=== PATIENT | male | born 1985 | race Two or more races ===

== ENCOUNTER 2021-01-26 09:30 | Emergency (ER) | payer OTHER ==
[~2021-01-26] VITALS: Ht 121.9 cm; Wt 40.8 kg
[2021-01-26] MEDS ORDERED: ADENOSINE 6 MG/2 ML INJ IV ONE (09:45)
[2021-01-26] MEDS ORDERED: dilTIAZem 25 MG/5 ML VIAL IV ONE ×2 (10:00)
[2021-01-26] MEDS ORDERED: SODIUM CHLORIDE 0.9% 1,000 ML IV ONE (10:00)
[2021-01-26] MEDS ORDERED: dilTIAZem 125mg/125ml BAG KIT 125 ML IV ONE ×2 (10:00)
[2021-01-26] MEDS ORDERED: ACETAMINOPHEN 650 MG RECT SUPP PR ONE (10:15)
[2021-01-26 10:48] LABS: Basophils # (auto) 0 10 ^3/uL (0-0.2); Basophils % (auto) 0.1 % (0.0-2.0); Eosinophils # (auto) 0 10 ^3/uL (0-0.8); Hematocrit 42.1 % (41.0-53.0); Hemoglobin 13.7 g/dL (13.5-17.5); Lymphocytes # (auto) 0.8 10 ^3/uL (0.4-5.4); Lymphocytes % (auto) 3.8 % (10.0-50.0); Mean Corpuscular Hemoglobin 28.3 pg (28.0-32.0); Mean Corpuscular Hgb Conc. 32.6 g/dL (32.0-36.0); Mean Corpuscular Volume 86.8 fL (80.0-100.0); Monocytes # (auto) 1.4 10 ^3/uL (0-1.3); Monocytes % (auto) 7.1 % (0.0-12.0); Neutrophils # (auto) 18.3 10 ^3/uL (1.6-8.6); Red Blood Cells 4.85 10^6/uL (4.5-5.90); Red Cell Distribution Width 13.5 % (11.8-14.3); White Blood Cell 20.5 10^3/uL (4.4-10.8)
[2021-01-26 11:00] LABS: Urine Bacteria FEW /hpf (None Seen); Urine Blood Negative /uL (Negative); Urine Hyaline Cast MOD /lpf (0 - 2); Urine Mucus FEW (None Seen); Urine Specific Gravity 1.023 (1.001-1.035); Urine WBC 21 /hpf (0 - 3)
[2021-01-26] MEDS ORDERED: LORazepam 2MG/ML-1ML VIAL IV ONE (11:00)
[2021-01-26 11:06] LABS: Lactic Acid w/Reflex 6.9 mmol/L (0.4-2.0)
[2021-01-26 11:08] LABS: Albumin 4.2 g/dL (3.4-5.0); Calcium 8.4 mg/dL (8.5-10.1); Potassium 3.1 mmol/L (3.5-5.1)
[2021-01-26 11:13] LABS: Alcohol, Urine < 3.0 mg/dL (0-10); Amphetamine Screen, Urine NEGATIVE (NEGATIVE); Barbiturate Scree,Urine NEGATIVE (NEGATIVE); Benzodiazephine Screen, Urine POSITIVE (NEGATIVE); Cannabinoid Screen, Urine NEGATIVE (NEGATIVE); Cocaine Screen, Urine NEGATIVE (NEGATIVE); Opiate Scree,Urine NEGATIVE (NEGATIVE); Phencyclidine Screen, Urine NEGATIVE (NEGATIVE)
[2021-01-26 11:15] LABS: BUN/Creatinine Ratio 13.1; Bilirubin, Total 0.4 mg/dL (0.2-1.0); Magnesium 1.7 mg/dL (1.6-2.6)
[2021-01-26] MEDS ORDERED: cefTRIAXone 1GM/50ML D5W 50 ML IV ONE (12:00)
[2021-01-26] MEDS ORDERED: POTASSIUM EFFERVESENT TAB 25 MEQ PO ONE (13:00)
[2021-01-26] MEDS ORDERED: ATENOLOL 25 MG TAB PO ONE (18:00)
[2021-01-26] MEDS ORDERED: BACLOFEN 10 MG TAB PO ONE (18:00)
[2021-01-27 00:50] VITALS: BP 146/83
== END 2021-01-27 01:44 | disposition short-term general hospital (02) ==
LOC: ER 09:30
DX: A41.9 Sepsis, unspecified organism (principal); I47.1 Supraventricular tachycardia; G40.909 Epilepsy, unspecified, not intractable, without status epilepticus; Z20.822 Contact with and (suspected) exposure to COVID-19
CPT/HCPCS: 36415; 70450; 71045; 80053; 80307; 81001; 83605; 83735; 83880; 84484; 85025; 87040; 87426; 93005; 96365; 96367; 96375; 99291; J0153; J0696; J2060